=== PATIENT | female | born 1990 | race African-American/Black ===

== ENCOUNTER 2016-10-01 23:30 | Emergency (ER) | payer MEDICAID ==
[~2016-10-01] VITALS: Ht 175.3 cm; Wt 74.8 kg
[2016-10-02 00:24] LABS: Urine Bilirubin Negative (Negative); Urine Blood Negative /uL (Negative); Urine Color Yellow (Yellow); Urine Glucose Normal (Normal); Urine Ketone TRACE (Negative); Urine Nitrite Negative (Negative); Urine RBC 10 /hpf (0 - 4); Urine Squamous Epithelial Cell MOD /hpf (<5); Urine Urobilinogen Normal (Negative); Urine pH 6.5 (5.0-8.0)
[2016-10-02 00:32] LABS: Basophils # (auto) 0 uL; Basophils % (auto) 0.5 % (0.0-2.0); Eosinophils # (auto) 0.1 uL; Eosinophils % (auto) 1.2 % (0.0-7.0); Hematocrit 36.7 % (36.0-46.0); Hemoglobin 12.2 g/dL (12.2-16.2); Lymphocytes # (auto) 1.6 uL; Lymphocytes % (auto) 19.9 % (10.0-50.0); Mean Corpuscular Hemoglobin 27.6 pg (28.0-32.0); Mean Corpuscular Hgb Conc. 33.3 g/dL (32.0-36.0); Mean Corpuscular Volume 83.1 fL (80.0-100.0); Monocytes # (auto) 0.5 uL; Monocytes % (auto) 6.4 % (0.0-12.0); Platelet Count (auto) 197 10^3/uL (140-450); Red Cell Distribution Width 12.3 % (11.6-16.0); White Blood Cell 8.2 10^3/uL (4.4-10.8)
[2016-10-02 01:01] LABS: Albumin 3.9 g/dL (3.4-5.0); BUN/Creatinine Ratio 11.5; Calcium 8.7 mg/dL (8.5-10.1); Potassium 4.1 mmol/L (3.5-5.1)
[2016-10-02 01:04] LABS: Bilirubin, Total 0.2 mg/dL (0.2-1.0); Total Protein 7.9 g/dL (6.4-8.2)
[2016-10-02 06:33] VITALS: BP 112/66
[2016-10-02 07:55] LABS: Vaginal Trichomonas Not Present; Vaginal WBC Many; Vaginal Yeast None Seen
[2016-10-02 07:56] LABS: Vaginal Bacteria Many; Vaginal Clue Cells None Seen; Vaginal Epithelial Cells Many; Vaginal RBC Few
== END 2016-10-02 08:26 | disposition home or self-care (01) ==
LOC: ER 23:30
DX: O23.41 Unspecified infection of urinary tract in pregnancy, first trimester (principal); O23.591 Infection of other part of genital tract in pregnancy, first trimester; Z3A.10 10 weeks gestation of pregnancy; J45.909 Unspecified asthma, uncomplicated; F12.10 Cannabis abuse, uncomplicated
CPT/HCPCS: 36415; 76801; 80053; 81001; 84702; 85025; 87210; 93005

== ENCOUNTER 2022-04-10 17:17 | Emergency (ER) | payer MEDICAID ==
[~2022-04-10] VITALS: Ht 177.8 cm; Wt 93.0 kg
[2022-04-10 18:39] LABS: Basophils # (auto) 0 10 ^3/uL (0-0.2); Basophils % (auto) 0.2 % (0.0-2.0); Eosinophils # (auto) 0.1 10 ^3/uL (0-0.8); Eosinophils % (auto) 0.5 % (0.0-7.0); Hematocrit 38.5 % (36.0-46.0); Hemoglobin 12.7 g/dL (12.2-16.2); Mean Corpuscular Hgb Conc. 33.1 g/dL (32.0-36.0); Mean Corpuscular Volume 84.6 fL (80.0-100.0); Monocytes # (auto) 0.6 10 ^3/uL (0-1.3); Monocytes % (auto) 4.5 % (0.0-12.0); Neutrophils # (auto) 12.2 10 ^3/uL (1.6-8.6); Neutrophils % (auto) 87.8 % (37.0-80.0); Red Blood Cells 4.55 10^6/uL (4.0-5.20); Red Cell Distribution Width 13.6 % (11.8-14.3); White Blood Cell 13.9 10^3/uL (4.4-10.8)
[2022-04-10 18:48] LABS: Urine Bacteria NONE SEEN /hpf (None Seen); Urine Blood Negative /uL (Negative); Urine Mucus FEW (None Seen); Urine Specific Gravity 1.025 (1.001-1.035); Urine WBC 12 /hpf (0 - 5)
[2022-04-10 18:54] LABS: BUN/Creatinine Ratio 15.2; Calcium 9.1 mg/dL (8.5-10.1); Potassium 3.7 mmol/L (3.5-5.1)
[2022-04-10 18:57] LABS: Bilirubin, Total 0.5 mg/dL (0.2-1.0)
[2022-04-11] MEDS ORDERED: ONDANSETRON ODT 4 MG TAB PO ONE (00:30)
[2022-04-11] MEDS ORDERED: HYDROcodone-ACET 10/325MG TAB PO ONE (00:30)
[2022-04-11] MEDS ORDERED: CEPH-510 PO (02:27)
[2022-04-11] MEDS ORDERED: cefTRIAXone SOD 1,000 MG VL IM ONE (02:30)
[2022-04-11 02:50] VITALS: BP 106/52
== END 2022-04-11 03:02 | disposition home or self-care (01) ==
LOC: ER 17:17
DX: N39.0 Urinary tract infection, site not specified (principal); J45.909 Unspecified asthma, uncomplicated; F12.10 Cannabis abuse, uncomplicated; Z88.1 Allergy status to other antibiotic agents
CPT/HCPCS: 36415; 80053; 81001; 85025; 96372; 99283; J0696; Q0162

== ENCOUNTER 2023-11-25 02:24 | Emergency (ER) | payer MEDICAID ==
[~2023-11-25] VITALS: Ht 175.3 cm; Wt 90.7 kg
[~2023-11-25 02:24] MED LIST: CEPH-510 PO
[2023-11-25] MEDS: PANTOPRAZOLE 40 MG/10 ML VIAL INJ IV ONE (02:45)
[2023-11-25 02:56] LABS: Basophils # (auto) 0 10 ^3/uL (0-0.2); Basophils % (auto) 0.3 % (0.0-2.0); Eosinophils # (auto) 0.1 10 ^3/uL (0-0.8); Eosinophils % (auto) 0.9 % (0.0-7.0); Hematocrit 38.7 % (36.0-46.0); Hemoglobin 12.5 g/dL (12.2-16.2); Lymphocytes # (auto) 0.9 10 ^3/uL (0.4-5.4); Lymphocytes % (auto) 7.2 % (10.0-50.0); Mean Corpuscular Hemoglobin 27.3 pg (28.0-32.0); Mean Corpuscular Hgb Conc. 32.3 g/dL (32.0-36.0); Mean Corpuscular Volume 84.3 fL (80.0-100.0); Monocytes # (auto) 0.2 10 ^3/uL (0-1.3); Monocytes % (auto) 1.8 % (0.0-12.0); Neutrophils # (auto) 10.7 10 ^3/uL (1.6-8.6); Neutrophils % (auto) 89.8 % (37.0-80.0); Platelet Count (auto) 239 10^3/uL (140-450); Red Blood Cells 4.59 10^6/uL (4.0-5.20); Red Cell Distribution Width 14.2 % (11.8-14.3); White Blood Cell 11.9 10^3/uL (4.4-10.8)
[2023-11-25 03:16] LABS: Alanine Aminotransferase 57 U/L (7-40); Alkaline Phosphatase 100 U/L (46-116); Anion Gap 6 (5-15); Aspartate Aminotransferase 113 U/L (13-40); BUN/Creatinine Ratio 12.6 (10.0-20.0); Blood Urea Nitrogen 11 mg/dL (9-23); Calcium 9.3 mg/dL (8.7-10.4); Carbon Dioxide 25 mmol/L (20-30); Chloride 106 mmol/L (98-107); Glucose 99 mg/dL (74-106); Lipase 31 U/L (12-53); Potassium 3.7 mmol/L (3.5-5.1); Sodium 137 mmol/L (136-145)
[2023-11-25 03:17] LABS: Bilirubin, Total 0.5 mg/dL (0.2-1.0); Total Protein 7.7 g/dL (5.7-8.2)
[2023-11-25 06:27] VITALS: TEMP 98.8
[2023-11-25] MEDS: SODIUM CHLORIDE 0.9% 1,000 ML IVB ONE (06:38)
[2023-11-25] MEDS: ONDANSETRON HCL 4 MG/2 ML VIAL IV ONE (06:51)
[2023-11-25] MEDS: PROCHLORPERAZINE EDISYLATE 5 MG/ML 2ML VIAL IV ONE (06:51)
[2023-11-25] MEDS: MORPHINE SULFATE 4 MG/ML SYR/VIAL IV ONE (06:53)
[2023-11-25 07:21] VITALS: PULSE 87; RESP 18; O2SAT 96
[2023-11-25] MEDS ORDERED: ACET-1304 PO (07:24)
[2023-11-25] MEDS ORDERED: ZOFR4T PO (07:24)
[2023-11-25] MEDS ORDERED: DICY10CA PO (07:24)
[2023-11-25 07:27] VITALS: BP 140/65; PULSE 80; RESP 18
== END 2023-11-25 07:28 | disposition home or self-care (01) ==
LOC: EDBD 02:24 → ER 02:24
DX: R10.13 Epigastric pain (principal); J45.909 Unspecified asthma, uncomplicated; F15.90 Other stimulant use, unspecified, uncomplicated; Z98.890 Other specified postprocedural states; Z79.899 Other long term (current) drug therapy
CPT/HCPCS: 36415; 76705; 80053; 83690; 85025; 96361; 96374; 96375; 99285; J0780; J2270; J2405; J7030